=== PATIENT | female | born 1980 | race Caucasian/White ===

== ENCOUNTER 2022-08-07 17:45 | Emergency (ER) | payer OTHER, SELFPAY ==
[2022-08-07 17:54] VITALS: BP 131/97; PULSE 94; RESP 24; TEMP 37.2; O2SAT 95; BMI 37.1
[2022-08-07 18:17] LABS: MANUAL DIFF FLAG NO
[2022-08-07 18:26] LABS: Basophils Percent Auto 0.3 % (0-2); Eosinophils Absolute Auto 0.1 X10*3/uL (0.0-0.4); Hematocrit 42.2 % (37.0-47.0); Hemoglobin 14.1 g/dl (12.0-16.0); Imm Gran Pct Auto 0.9 % (0.0-0.4); Lymphocytes Absolute Auto 0.8 X10*3/uL (1.2-4.9); Lymphocytes Percent Auto 7.2 % (20-40); Mean Corpuscular HGB Conc 33.4 g/dl (31.0-35.0); Mean Corpuscular Hemoglobin 29.6 pg (27.0-33.0); Mean Corpuscular Volume 88.7 fL (80.0-98.0); Mean Platelet Volume 10.2 fL (9.4-12.3); Monocytes Absolute Auto 0.3 X10*3/uL (0.1-1.2); Monocytes Percent Auto 2.9 % (2-11); Neutrophils Absolute Auto 9.5 x10*3/uL (2.0-8.3); Neutrophils Percent Auto 87.7 % (45-73); Platelet Count 257 X10*3/uL (160-400); Red Blood Count 4.76 X10*6/uL (4.20-5.50); White Blood Count 10.8 X10*3/uL (4.8-10.8)
--- NOTE | 2022-08-07 18:29 | ED.ABDPAIN ---
HPI - Abdominal Pain General Chief Complaint: Abdominal Pain <Lori Mojica CNP - Last Filed: 08/07/22 20:33> Stated Complaint: Abd Pain <Lori Mojica CNP - Last Filed: 08/07/22 20:33> Time Seen by Provider: 08/08/22 00:27 <Lori Mojica CNP - Last Filed: 08/07/22 20:33> Source: patient <Alvaro Fairbanks MD - Last Filed: 08/08/22 04:18> Mode of arrival: ambulatory <Alvaro Fairbanks MD - Last Filed: 08/08/22 04:18> Limitations: no limitations <Alvaro Fairbanks MD - Last Filed: 08/08/22 04:18> History of Present Illness HPI narrative: Patient status post cholecystectomy and gastric surgery to stop vomiting comes here for epigastric pain since a.m. pain is burning sensation and sharp with nausea also patient has been having diarrhea multiple times no fever no chills no other family member sick <Alvaro Fairbanks MD - Last Filed: 08/08/22 04:18> Related Data Home Medications: Previous Rx's Medication Instructions Recorded loperamide 2 mg tablet (Imodium 2 mg PO Q6H PRN loose stool #14 08/08/22 A-D) tabs ondansetron 4 mg disintegrating 4 mg PO Q6-8H PRN nausea and 08/08/22 tablet vomiting #7 tabs sucralfate 1 gram tablet 1 g PO BID #60 tabs 08/08/22 <Lori Mojica CNP - Last Filed: 08/07/22 20:33> Allergies/Adverse Reactions: Allergies Allergy/AdvReac Type Severity Reaction Status Date / Time aspirin [ASA] Allergy Anaphylaxis Verified 08/07/22 17:54 haloperidol [From Haldol] Allergy Anaphylaxis Verified 08/07/22 17:54 ketorolac [From Toradol] Allergy Anaphylaxis Verified 08/07/22 17:54 <Lori Mojica CNP - Last Filed: 08/07/22 20:33> Review of Systems Review of Systems Yes all other systems are reviewed and are negative <Alvaro Fairbanks MD - Last Filed: 08/08/22 04:18> PMFSH Social History Social History: Social History Advance Directives: No Advance Directives Information Provided: No <Lori Clarkarie Mojica CNP - Last Filed: 08/07/22 20:33> Physical Exam ED Vital Signs: Vital Signs - 24 hr 08/07/22 17:54 08/07/22 22:54 08/08/22 00:19 Temperature 99 F 98.1 F Pulse Rate 94 103 H 102 H Respiratory Rate 24 H 18 20 Blood Pressure 131/97 H 106/63 110/73 Pulse Oximetry 95 95 95 Oxygen Delivery Method Room Air Room Air Room Air 08/08/22 01:33 Temperature 98.4 F Pulse Rate 101 H Respiratory Rate 18 Blood Pressure 109/80 Pulse Oximetry 98 Oxygen Delivery Method Room Air BMI result Body Mass Index 37.1 <Lori Clarkarie Mojica CNP - Last Filed: 08/07/22 20:33> Vital Signs - 24 hr 08/07/22 17:54 08/07/22 22:54 08/08/22 00:19 Temperature 99 F 98.1 F Pulse Rate 94 103 H 102 H Respiratory Rate 24 H 18 20 Blood Pressure 131/97 H 106/63 110/73 Pulse Oximetry 95 95 95 Oxygen Delivery Method Room Air Room Air Room Air 08/08/22 01:33 Temperature 98.4 F Pulse Rate 101 H Respiratory Rate 18 Blood Pressure 109/80 Pulse Oximetry 98 Oxygen Delivery Method Room Air BMI result Body Mass Index 37.1 <Alvaro Fairbanks MD - Last Filed: 08/08/22 04:18> Appearance: Alert. Oriented X3. No acute distress. Anxious Eyes: No pallor or icterus ENT: Pharynx normal. Oral Mucosa moist Neck: Normal inspection. Neck supple. CVS: Normal heart rate and rhythm. Pulses normal. Respiratory: No respiratory distress. Equal air entry bilateral, no wheezing/rales/rhonchi Abdomen: Soft , tenderness in epigastric area no rebound tenderness Bowel sounds are present, no mass palpable, no CVA tenderness Skin: Skin warm and dry. Normal skin color. Normal skin turgor. Extremities: No lower extremity edema. No calf tenderness Neuro: Oriented X 3. No motor deficit. <Alvaro Fairbanks MD - Last Filed: 08/08/22 04:18> Course Course Course Narrative: This is an RME: Additional HPI, ROS, PE not included below will be deferred to primary provider. Patient is a 41-year-old female who presents emergency department with reports of abdominal pain, points to central region and epigastric. States she has already had her gallbladder removed. Has had associated nausea. Symptom onset was this morning. Denies genitourinary symptoms. She feels weak/fatigued. Plan: labs, urinalysis <Lori Mojica CNP - Last Filed: 08/07/22 20:33> Medical Decision Making Medical Decision Making MDM Narrative: Patient stable with acute nausea and diarrhea likely gastroenteritis labs are stable discharge patient home on Zofran and Imodium and Maalox <Alvaro Fairbanks MD - Last Filed: 08/08/22 04:18> Differential Diagnosis Gastritis/gastroenteritis/pancreatitis <Alvaro Fairbanks MD - Last Filed: 08/08/22 04:18> Lab Data [facility] [place] Lab Attestation statement: I reviewed the patient's lab results. <Alvaro Fairbanks MD - Last Filed: 08/08/22 04:18> Result Diagrams: 08/07/22 18:05 08/07/22 18:05 <Lori Mojica CNP - Last Filed: 08/07/22 20:33> Labs: Lab Results 08/07/22 08/07/22 08/07/22 Range/Units 18:05 18:05 22:30 WBC 10.8 (4.8-10.8) X10*3/uL RBC 4.76 (4.20-5.50) X10*6/uL Hgb 14.1 (12.0-16.0) g/dl Hct 42.2 (37.0-47.0) % MCV 88.7 (80.0-98.0) fL MCH 29.6 (27.0-33.0) pg MCHC 33.4 (31.0-35.0) g/dl RDW 12.0 (11.0-16.0) % Plt Count 257 (160-400) X10*3/uL MPV 10.2 (9.4-12.3) fL Immature Gran % (Auto) 0.9 H (0.0-0.4) % Neut % (Auto) 87.7 H (45-73) % Lymph % (Auto) 7.2 L (20-40) % Metcalfe % (Auto) 2.9 (2-11) % Eos % (Auto) 1.0 (0-4) % Baso % (Auto) 0.3 (0-2) % Lymph # (Auto) 0.8 L (1.2-4.9) X10*3/uL Metcalfe # (Auto) 0.3 (0.1-1.2) X10*3/uL Eos # (Auto) 0.1 (0.0-0.4) X10*3/uL Baso # (Auto) 0.0 (0.0-0.2) X10*3/uL Abs Immat Gran (auto) 0.10 H (0.00-0.03) X10*3/uL Absolute Neuts (auto) 9.5 H (2.0-8.3) x10*3/uL Absolute Nucleated RBC 0.000 (0.0-0.012) X10*3/uL Nucleated RBC % (auto) 0.0 (0.0-0.2) /100WBC Sodium 139 (135-145) mmol/L Potassium 4.2 (3.3-5.1) mmol/L Chloride 107 (96-108) mmol/L Carbon Dioxide 22 (22-29) mmol/L Anion Gap 14 (12-20) BUN 14 (9-16) mg/dL Creatinine 0.65 (0.5-1.4) mg/dL Estim Creat Clear Calc 141.8 Estimated GFR > 60 Random Glucose 105 (60-115) mg/dL Calcium 9.2 (8.4-10.2) mg/dL Total Bilirubin 0.7 (0.0-1.0) mg/dL Direct Bilirubin 0.2 (0.0-0.5) mg/dL AST 21 (5-31) U/L ALT 33 H (0-31) U/L Alkaline Phosphatase 63 (39-117) U/L Total Protein 7.4 (6.5-8.0) g/dL Albumin 4.5 (3.5-5.0) g/dL Lipase 11 (8-78) U/L Urine Color Yellow Urine Appearance Clear Urine pH 5.5 (5.0-9.0) Ur Specific Cornish >= 1.030 H (1.005-1.025) Urine Protein Trace (Neg-Trace) mg/dL Urine Glucose (UA) Negative (Negative) mg/dL Urine Ketones Negative (Negative) mg/dL Urine Blood Negative (Negative) Urine Nitrite Negative (Negative) Ur Leukocyte Esterase Negative (Negative) <Lori Mojica, [employer] - Last Filed: 08/07/22 20:33> Lab Results 08/07/22 08/07/22 08/07/22 Range/Units 18:05 18:05 22:30 WBC 10.8 (4.8-10.8) X10*3/uL RBC 4.76 (4.20-5.50) X10*6/uL Hgb 14.1 (12.0-16.0) g/dl Hct 42.2 (37.0-47.0) % MCV 88.7 (80.0-98.0) fL MCH 29.6 (27.0-33.0) pg MCHC 33.4 (31.0-35.0) g/dl RDW 12.0 (11.0-16.0) % Plt Count 257 (160-400) X10*3/uL MPV 10.2 (9.4-12.3) fL Immature Gran % (Auto) 0.9 H (0.0-0.4) % Neut % (Auto) 87.7 H (45-73) % Lymph % (Auto) 7.2 L (20-40) % Metcalfe % (Auto) 2.9 (2-11) % Eos % (Auto) 1.0 (0-4) % Baso % (Auto) 0.3 (0-2) % Lymph # (Auto) 0.8 L (1.2-4.9) X10*3/uL Metcalfe # (Auto) 0.3 (0.1-1.2) X10*3/uL Eos # (Auto) 0.1 (0.0-0.4) X10*3/uL Baso # (Auto) 0.0 (0.0-0.2) X10*3/uL Abs Immat Gran (auto) 0.10 H (0.00-0.03) X10*3/uL Absolute Neuts (auto) 9.5 H (2.0-8.3) x10*3/uL Absolute Nucleated RBC 0.000 (0.0-0.012) X10*3/uL Nucleated RBC % (auto) 0.0 (0.0-0.2) /100WBC Sodium 139 (135-145) mmol/L Potassium 4.2 (3.3-5.1) mmol/L Chloride 107 (96-108) mmol/L Carbon Dioxide 22 (22-29) mmol/L Anion Gap 14 (12-20) BUN 14 (9-16) mg/dL Creatinine 0.65 (0.5-1.4) mg/dL Estim Creat Clear Calc 141.8 Estimated GFR > 60 Random Glucose 105 (60-115) mg/dL Calcium 9.2 (8.4-10.2) mg/dL Total Bilirubin 0.7 (0.0-1.0) mg/dL Direct Bilirubin 0.2 (0.0-0.5) mg/dL AST 21 (5-31) U/L ALT 33 H (0-31) U/L Alkaline Phosphatase 63 (39-117) U/L Total Protein 7.4 (6.5-8.0) g/dL Albumin 4.5 (3.5-5.0) g/dL Lipase 11 (8-78) U/L Urine Color Yellow Urine Appearance Clear Urine pH 5.5 (5.0-9.0) Ur Specific Cornish >= 1.030 H (1.005-1.025) Urine Protein Trace (Neg-Trace) mg/dL Urine Glucose (UA) Negative (Negative) mg/dL Urine Ketones Negative (Negative) mg/dL Urine Blood Negative (Negative) Urine Nitrite Negative (Negative) Ur Leukocyte Esterase Negative (Negative) <Alvaro Fairbanks MD - Last Filed: 08/08/22 04:18> Medications Administered Discontinued Medications Generic Name Dose Route Start Last Admin Trade Name Freq PRN Reason Stop Dose Admin Famotidine 20 mg 08/08/22 01:25 08/08/22 01:35 Famotidine/Pf 20 Mg/2 Ml Vial IVPUSH 08/08/22 01:26 20 mg ONCE ONE Administration Sodium Chloride 1,000 mls @ 999 mls/hr 08/08/22 01:25 08/08/22 01:34 Ns IV 08/08/22 02:25 999 mls/hr .Q1H1M ONE Administration Loperamide HCl 2 mg 08/08/22 01:25 08/08/22 01:34 Loperamide Hcl 2 Mg Capsule PO 08/08/22 01:26 2 mg ONCE ONE Administration Morphine Sulfate 4 mg 08/08/22 01:25 08/08/22 01:34 Morphine Sulfate 4 Mg/Ml Cartridge IVPUSH 08/08/22 01:26 4 mg ONCE ONE Administration Protocol Ondansetron HCl 4 mg 08/08/22 01:25 08/08/22 01:34 Ondansetron Hcl 4 Mg/2 Ml Vial IVPUSH 08/08/22 01:26 4 mg ONCE ONE Administration <Lori Mojica CNP - Last Filed: 08/07/22 20:33> Medications Administered Discontinued Medications Generic Name Dose Route Start Last Admin Trade Name Anantq PRN Reason Stop Dose Admin Famotidine 20 mg 08/08/22 01:25 08/08/22 01:35 Famotidine/Pf 20 Mg/2 Ml Vial IVPUSH 08/08/22 01:26 20 mg ONCE ONE Administration Sodium Chloride 1,000 mls @ 999 mls/hr 08/08/22 01:25 08/08/22 01:34 Ns IV 08/08/22 02:25 999 mls/hr .Q1H1M ONE Administration Loperamide HCl 2 mg 08/08/22 01:25 08/08/22 01:34 Loperamide Hcl 2 Mg Capsule PO 08/08/22 01:26 2 mg ONCE ONE Administration Morphine Sulfate 4 mg 08/08/22 01:25 08/08/22 01:34 Morphine Sulfate 4 Mg/Ml Cartridge IVPUSH 08/08/22 01:26 4 mg ONCE ONE Administration Protocol Ondansetron HCl 4 mg 08/08/22 01:25 08/08/22 01:34 Ondansetron Hcl 4 Mg/2 Ml Vial IVPUSH 08/08/22 01:26 4 mg ONCE ONE Administration <Alvaro Fairbanks MD - Last Filed: 08/08/22 04:18> Discharge Plan Discharge Clinical Impression: Gastroenteritis <Lori Mojica CNP - Last Filed: 08/07/22 20:33> Patient Disposition: Home, Self-Care <Lori Mojica CNP - Last Filed: 08/07/22 20:33> Instructions: Gastroenteritis (ED) <Lori Mojica CNP - Last Filed: 08/07/22 20:33> Additional Instructions: Drink plenty of fluids Medicine for nausea and diarrhea as prescribed sucralfate for gastritis continue famotidine Follow with PCP not better Beber mucho l?quido [facility] para las n?useas y la diarrea seg?n lo prescrito sucralfato para gastritis continuar famotidina Seguir con PCP no mejor <Lori Mojica CNP - Last Filed: 08/07/22 20:33> Prescriptions: New ondansetron 4 mg tablet,disintegrating 4 mg PO Q6-8H PRN (Reason: nausea and vomiting) Qty: 7 0RF loperamide [Imodium A-D] 2 mg tablet 2 mg PO Q6H PRN (Reason: loose stool) Qty: 14 0RF sucralfate 1 gram tablet 1 g PO BID Qty: 60 0RF <Lori Mojica CNP - Last Filed: 08/07/22 20:33> Print Language: Tamazight <Lori Mojica CNP - Last Filed: 08/07/22 20:33>
[2022-08-07 18:38] LABS: Alanine Aminotransferase 33 U/L (0-31); Albumin Level 4.5 g/dL (3.5-5.0); Alkaline Phosphatase 63 U/L (39-117); Anion Gap 14 (12-20); Aspartate Amino Transferase 21 U/L (5-31); Bilirubin Direct 0.2 mg/dL (0.0-0.5); Bilirubin Total 0.7 mg/dL (0.0-1.0); Blood Urea Nitrogen 14 mg/dL (9-16); Calcium 9.2 mg/dL (8.4-10.2); Carbon Dioxide 22 mmol/L (22-29); Chloride 107 mmol/L (96-108); Creatinine Clr Calc Pharmacy 141.8; Estimated Glomerular Filt Rate > 60; Glucose Random 105 mg/dL (60-115); Lipase 11 U/L (8-78); Potassium 4.2 mmol/L (3.3-5.1); Sodium 139 mmol/L (135-145); Total Protein 7.4 g/dL (6.5-8.0)
[2022-08-07 22:38] LABS: Appearance Urine Clear; Color Urine Yellow; Glucose Urine UA Negative (Negative); Leukocyte Esterase Urine Negative (Negative); Nitrite Urine Negative (Negative); PH 5.5 (5.0-9.0); Specific Gravity - Urine >= 1.030 (1.005-1.025); Urine Blood Negative (Negative); Urine Ketones Negative (Negative); Urine Protein Trace mg/dL (Neg-Trace)
[2022-08-07 22:54] VITALS: BP 106/63; PULSE 103; RESP 18; O2SAT 95
[2022-08-08 00:19] VITALS: BP 110/73; PULSE 102; RESP 20; TEMP 36.7; O2SAT 95
[2022-08-08 01:33] VITALS: BP 109/80; PULSE 101; RESP 18; TEMP 36.9; O2SAT 98
[2022-08-08] MEDS: Morphine Sulfate 4 MG/ML CARTRIDGE IVPUSH (01:34)
[2022-08-08] MEDS: 0.9 % Sodium Chloride 1,000 ML 999 ML IV (01:34)
[2022-08-08] MEDS: Loperamide HCl 2 MG CAPSULE PO (01:34)
[2022-08-08] MEDS: ondansetron HCL 4 MG/2 ML VIAL IVPUSH (01:34)
[2022-08-08] MEDS: Famotidine/PF 20 MG/2 ML VIAL IVPUSH (01:35)
== END 2022-08-08 04:53 | disposition home or self-care (01) ==
PROVIDERS: Emergency Provider Internal Medicine
DX: K52.9 Noninfective gastroenteritis and colitis, unspecified (principal); Z79.899 Other long term (current) drug therapy
CPT/HCPCS: 36415; 80048; 80076; 81003; 83690; 85025; 96374; 96375; 99284; J2270; J2405